=== PATIENT | female | born 1990 | race African-American/Black ===

== ENCOUNTER 2020-08-03 09:25 | Outpatient (CLI) | payer BC, SELFPAY ==
[2020-08-06 08:03] LABS: Prolactin 11.7 ng/mL (***)
[2020-08-07 09:36] LABS: Testosterone Total 30 ng/dL (2-45)
== END 2020-08-03 09:26 | disposition home or self-care (01) ==
PROVIDERS: PCP Nurse Practitioner Family; Visit Provider Student in an Organized Health Care Education/Training Program
DX: N92.6 Irregular menstruation, unspecified (principal)
CPT/HCPCS: 36415; 84146; 84403; 84443

== ENCOUNTER 2020-11-30 09:38 | Outpatient (CLI) | payer BC, SELFPAY ==
--- NOTE | 2020-11-30 11:00 | NEURO_ITS ---
Impression: # Complains of numbness of hand. # No Carpal Tunnel Syndrome. # Bilateral mild ulnar neuropathy across the elbows. # Normal needle/EMG exam. Nerve Conduction Studies Anti Sensory Summary Table Stim Site NR Peak (ms) P-T Amp (?V) Site1 Site2 Delta-P (ms) Dist (cm) Óscar (m/s) Left Median Anti Sensory (2-3nd Digit) Wrist 2.5 88.3 Wrist 2-3nd Digit 2.5 14.0 56 Wrist 2.3 92.7 Wrist 2-3nd Digit 2.5 14.0 56 Right Median Anti Sensory (2-3nd Digit) Wrist 2.6 63.8 Wrist 2-3nd Digit 2.6 14.0 54 Wrist 2.5 59.3 Wrist 2-3nd Digit 2.6 14.0 54 Left Radial Anti Sensory (Base 1st Digit) Wrist 1.7 27.2 Wrist Base 1st Digit 1.7 0.0 Right Radial Anti Sensory (Base 1st Digit) Wrist 2.1 25.6 Wrist Base 1st Digit 2.1 0.0 Left Ulnar Anti Sensory (5th Digit) Wrist 2.2 60.9 Wrist 5th Digit 2.2 14.0 64 Right Ulnar Anti Sensory (5th Digit) Wrist 2.2 76.7 Wrist 5th Digit 2.2 14.0 64 Motor Summary Table Stim Site NR Onset (ms) O-P Amp (mV) Site1 Site2 Delta-0 (ms) Dist (cm) Óscar (m/s) Left Median Motor (Abd Poll Brev) Wrist 2.5 8.5 Elbow Wrist 4.3 26.0 60 Elbow 6.8 4.9 Right Median Motor (Abd Poll Brev) Wrist 2.6 2.5 Elbow Wrist 4.2 26.0 62 Elbow 6.8 3.4 Left Ulnar Motor (Abd Dig Minimi) Wrist 2.1 4.4 A Elbow Wrist 5.3 29.0 55 A Elbow 7.4 4.3 B Elbow Wrist 4.0 24.0 60 B Elbow 6.1 4.2 Right Ulnar Motor (Abd Dig Minimi) Wrist 2.3 5.7 A Elbow Wrist 5.4 29.0 54 A Elbow 7.7 4.2 B Elbow Wrist 3.6 21.0 58 B Elbow 5.9 3.9 F Wave Studies NR F-Lat (ms) L-R F-Lat (ms) Left Median (Mrkrs) (Abd Poll Brev) 24.45 0.57 Right Median (Mrkrs) (Abd Poll Brev) 25.02 0.57 Left Ulnar (Mrkrs) (Abd Dig Min) 25.84 0.47 Right Ulnar (Mrkrs) (Abd Dig Min) 25.38 0.47 EMG Side Muscle Nerve Root Ins Act Fibs Amp Dur Recrt Comment Right 1stDorInt Ulnar C8-T1 Nml Nml Nml Nml Nml Right Ext Indicis Radial (Post Int) C7-8 Nml Nml Nml Nml Nml Right Ext Digitorum Radial (Post Int) C7-8 Nml Nml Nml Nml Nml Right BrachioRad Radial C5-6 Nml Nml Nml Nml Nml Right PronatorTeres Median C6-7 Nml Nml Nml Nml Nml Right Abd Poll Brev Median C8-T1 Nml Nml Nml Nml Nml Left 1stDorInt Ulnar C8-T1 Nml Nml Nml Nml Nml Left Ext Indicis Radial (Post Int) C7-8 Nml Nml Nml Nml Nml Left Ext Digitorum Radial (Post Int) C7-8 Nml Nml Nml Nml Nml Left BrachioRad Radial C5-6 Nml Nml Nml Nml Nml Left PronatorTeres Median C6-7 Nml Nml Nml Nml Nml Left Abd Poll Brev Median C8-T1 Nml Nml Nml Nml Nml MTDD
== END 2020-11-30 09:39 | disposition home or self-care (01) ==
PROVIDERS: PCP Nurse Practitioner Family; Visit Provider Nurse Practitioner Family
DX: R20.2 Paresthesia of skin (principal); G56.23 Lesion of ulnar nerve, bilateral upper limbs
CPT/HCPCS: 95886; 95911

== ENCOUNTER 2021-01-15 14:02 | Emergency (ER) | payer BC, SELFPAY ==
[2021-01-15 15:07] VITALS: BP 119/80; PULSE 103; RESP 16; TEMP 36.4; O2SAT 100
--- NOTE | 2021-01-15 15:26 | ED.URI ---
HPI - URI/Sore Throat General Chief Complaint: Upper Respiratory Infection Stated Complaint: Sore Throat Time Seen by Provider: 01/15/21 15:22 Source: patient and RN notes reviewed Mode of arrival: ambulatory Limitations: no limitations History of Present Illness HPI Narrative: 30-year-old female presents to the [facility] with complaints of a sore throat and swollen lymph nodes as well as swollen tonsils. Has taken allergy medication. Denies any fevers, nausea, vomiting or diarrhea. Denies any chest pain or abdominal pain. Patient is maintaining own secretions. Has a history of tonsillitis and strep throat. Related Data Allergies Allergy/AdvReac Type Severity Reaction Status Date / Time No Known Allergies Allergy Unknown Verified 01/15/21 17:37 Review of Systems Review of Systems: All systems reviewed & are unremarkable except as noted in HPI and below Constitutional: Constitutional: Reports no additional constitutional complaints, Denies chills and Denies fever(s) Eyes: Eyes: Reports no additional eye complaints ENT: Reports as per HPI and Reports sore throat Cardiovascular: Cardiovascular: Reports no additional cardiovascular complaints and Denies chest pain Respiratory: Respiratory: Reports no additional respiratory complaints, Denies cough and Denies dyspnea Gastrointestinal: Gastrointestinal: Reports no additional gastrointestinal complaints, Denies abdominal pain, Denies nausea and Denies vomiting Musculoskeletal: Musculoskeletal: Reports no additional musculoskeletal complaints Integumentary/Breasts: Skin/Breast: Reports system reviewed and no additional complaints, except as docu Neurologic: Reports system reviewed and no additional complaints, except as documented Psychiatric: Psychiatric: Reports no additional psychiatric complaints Hematologic/Lymphatic: Hematologic/Lymphatic: Reports as per HPI Comments: Swollen lymph node Allergic/Immunologic: Allergic/Immunologic: Reports no additional allergic/immunologic complaints [facility] Past Medical History Medical History Depression Migraine Surgical History Surgical History Delivery by section 2010 Family History Family History Grandparent Diabetes mellitus Hypertension Social History Social History Smoking status: Never smoker Alcohol intake: current Alcohol use details: Social Substance use: never Comments At the time of my signature, I reviewed and agree with the nursing past medical, surgical, social, and family history. There is no relevant family history pertinent to the patient complaint. Exam Const: General: healthy appearing, no acute distress and alert; No ill appearing Nutritional Appearance: well nourished Orientation/consciousness: patient oriented x3 Limitations: no limitations HENMT: Head: normal to inspection Ears: external ears normal, TM's normal bilaterally and EAC's normal General nose exam: Normal nares present Throat: uvula midline and abnormal tonsil (+3) bilateral erythema, exudates and hypertrophy Eyes: Conjunctivae: conjunctivae normal Pupils: Equal, round and reactive pupils present Neck: Neck: normal visual inspection and lymphadenopathy bilateral submandibular soft and mobile Chest: Chest palpation & inspection: normal inspection of the chest Resp: Effort & Inspection: normal respiratory effort and no use of accessory muscles Auscultation: clear to auscultation bilaterally, no crackles, no rales, no rhonchi and no wheezes Cardio: Rate: regular rate Rhythm: regular rhythm Back/Spine/Pelvis: Back: no CVA tenderness Skin: General skin exam: normal color Rashes: no rashes Wounds: no wounds Neuro: General: patient oriented x3, moves all extremities, no meningeal signs and no focal motor d
== END 2021-01-15 15:54 | disposition home or self-care (01) ==
PROVIDERS: Emergency Provider Nurse Practitioner
DX: J03.90 Acute tonsillitis, unspecified (principal)
CPT/HCPCS: 87081; 87880; 99213; G0463

== ENCOUNTER 2022-09-02 14:19 | Outpatient (CLI) | payer BC, SELFPAY ==
[2022-09-02 15:50] LABS: HIV 1/2 Ab P24 Ag Result Negative (Negative)
[2022-09-02 16:26] LABS: Hepatitis B Surface Antigen Negative (Negative)
[2022-09-02 16:43] LABS: Hepatitis C Virus Antibody Negative (Negative)
[2022-09-03 08:32] LABS: Rapid Plasma Reagin Non-Reactive (NonReactive)
== END 2022-09-02 14:20 | disposition home or self-care (01) ==
LOC: ANHLAB 14:19
PROVIDERS: Visit Provider Obstetrics & Gynecology
DX: Z20.2 Contact with and (suspected) exposure to infections with a predominantly sexual mode of transmission (principal)
CPT/HCPCS: 36415; 86592; 86703; 86803; 87340; G0432